=== PATIENT | male | born 1985 | race Caucasian/White ===

== ENCOUNTER 2018-01-18 23:44 | Emergency (ER) | payer OTHER ==
[2018-01-18 23:57] VITALS: RESP 16; TEMP 97.9; O2SAT 95
--- NOTE | 2018-01-19 00:21 | EDPHY ---
H & P Time Seen by Provider: 01/18/18 23:51 HPI/ROS: CHIEF COMPLAINT: Nausea and vomiting with diarrhea HISTORY OF PRESENT ILLNESS: This is a 32-year-old male in previous good health. He did approximately 2 weeks ago come down with upper respiratory tract infection complete with stuffy nose and moderate cough. Of note is that during that time there is no significant fevers or myalgias or runny nose. Nonetheless though symptoms all were improving and there was some mild residual cough this week. Was to simply improving and getting better. No specific intervention was necessary, did not see his family physician, it was not taking [id number] medications. Today however was a different story. He felt well when went to bed last night and awoke this morning at 9:00 a.m. With episode of vomiting. This was non bilious. All told, he has had 3 episodes of emesis with the last being at 5:00 p.m.. Throughout the day had moderate anorexia. Furthermore he had episodes of feeling lightheaded which were transient without vertigo. Further, later in the day he started having episodes of diarrhea, this started shortly after the vomiting and was virtually every 2 hr with a greenish color at times. Travel: None Others: None Antibiotics: None Bad Food: None Bad Water: None Recent Surgery: None There has been no pain associated with this illness. There is no sense of abdominal distress when he is about to have diarrhea stool. He works in the restaurant industry, often however not certain food or having contact or preparing food per se. There have been some people till with intestinal symptoms at work this week. REVIEW OF SYSTEMS: Constitutional: No fever, no chills. Eyes: No discharge No diplopia ENT: No sore throat. Cardiovascular: No chest pain, no palpitations. Respiratory: No cough, shortness of breath, or wheezing. Gastrointestinal: No nausea vomiting or diarrhea. No abdominal pain. Genitourinary: No hematuria or frequency. Musculoskeletal: No back pain. Skin: No rashes. Neurological: No headache. 10 point ROS otherwise negative Source: Patient Exam Limitations: No limitations - Family History Significant Family History: No pertinent family hx - Social History Smoking Status: Never smoked Alcohol Use: None Drug Use: None - Physical Exam Exam: General Appearance: Alert, no distress. Afebrile. Normal phonation. No respiratory distress. Eyes: Pupils equal and round no pallor or injection. No icterus ENT, Mouth: Mucous membranes moderately dry Pharynx without erythema or exudate. TM Clear. Neck: No adenopathy. Supple. No JVD. Trachea in midline. Respiratory: There are no retractions, lungs are clear to auscultation. Chest wall: Nontender to palpation. No crepitus. Cardiovascular: Regular rate and rhythm. Abdomen: Soft and nontender, no masses, bowel sounds normal. Femoral pulses equal. Neurological: Ox3. No motor weakness. Sensation intact. Gait nl. Skin: Warm and dry, no rashes. Musculoskeletal: No joint swelling. Extremities: No edema. Homans sign negative. No cords. Psychiatric: Normal affect. Patient is oriented X 3. There is no agitation Constitutional: Initial Vital Signs Temperature (C) 36.6 C 01/18/18 23:55 Heart Rate 67 01/18/18 23:55 Respiratory Rate 16 01/18/18 23:55 Blood Pressure 124/77 H 01/18/18 23:55 O2 Sat (%) 95 01/18/18 23:55 O2 Delivery Mode Room Air Allergies/Adverse Reactions: Sulfa (Sulfonamide Antibiotics) Allergy (Unknown, Verified 01/18/18 23:53) Home Medications: Medication Instructions Recorded Vivitrol 01/18/18 Medical Decision Making ED Course/Re-evaluation: Orthostatic blood pressure checks here were negative. Though he is dehydrated as evidenced by his dry mucous membranes he is to the testi of time and his last episode of emesis with some 8 hr ago. Thus, he does not as he of yet require any IV hydration therapy. Nonetheless I want him to start p.o. Hydration and we have reviewed the technique and progressive hydration over the next few hours. Likewise he is to avoid any caffeine which he did notice he had taken earlier today in the form of the [place] and aamir alexander. He will have Zofran to help improve his hydration status and have expectant management with improvement planned by noon today some 10 hr from now. If in the interim he continues to vomit he should return for IV therapy at that point in time. At this point in time he does not require any specific stools testing as there are no high-grade criteria for bacterial sources. However if he still ill in 2 or 3 more days and specimen be necessary Differential Diagnosis: Differential diagnosis includes, but is not limited to: Gastroenteritis, dehydration, hepatitis, pancreatitis, cholecystitis, appendicitis, gastritis, mesenteric adenitis, food poisoning, bacterial dysentery. - Data Points Medications Given: Discontinued Medications Ondansetron HCl (Zofran Odt 4 Mg Prepack#2) 1 btl TAKEHOME EDNOW ONE Stop: 01/19/18 00:25 Last Admin: 01/19/18 00:37 Dose: 1 btl Ondansetron HCl (Zofran Odt) 4 mg PO EDNOW ONE Stop: 01/19/18 00:26 Last Admin: 01/19/18 00:37 Dose: 4 mg Departure - Departure Disposition: Home, Routine, Self-Care Clinical Impression: Norovirus, Gastroenteritis Condition: Good Instructions: Ondansetron (By mouth), Dehydration (ED), Gastroenteritis (DC) Additional Instructions: Once your stomach is settled, it is important to take more solid foods so as to get in maintain nutrition. If you're still vomiting by noon tomorrow, you will need to return for recheck Said, until tomorrow morning take a liquid diet avoiding caffeine and too many juices Zofran for the nausea so you're able to hydrate Recheck in 2 days time with her family doctor if the diarrhea is continuing. The food for others until the diarrhea is resolved and 5 days have passed - see a work note Referrals: Patient,NotPresent [Primary Care Provider] - As per Instructions Stand Alone Forms: Work Limited Duty, Work Excuse
[2018-01-19] MEDS ORDERED: ONDANSETRON 4MG PREPACK#2 BTL TAKEHOME ONE (00:24)
[2018-01-19] MEDS ORDERED: ONDANSETRON DISINTEGRATING 4 MG TAB PO ONE (00:25)
[2018-01-19 00:28] VITALS: BP 119/74; PULSE 70
== END 2018-01-19 00:44 | disposition home or self-care (01) ==
LOC: CED 23:44
DX: A08.11 Acute gastroenteropathy due to Norwalk agent (principal)